=== PATIENT | male | born 1995 | race Caucasian/White ===

== ENCOUNTER 2022-07-11 14:17 | Emergency (ER) | payer OTHER ==
[~2022-07-11] VITALS: Ht 188 cm; Wt 79.0 kg
[2022-07-11 18:09] VITALS: BP 151/90
== END 2022-07-11 18:21 | disposition home or self-care (01) ==
LOC: M ED 14:17
DX: J06.9 Acute upper respiratory infection, unspecified (principal); B97.89 Other viral agents as the cause of diseases classified elsewhere